=== PATIENT | female | born 1990 | race Caucasian/White ===

== ENCOUNTER 2019-05-14 17:18 | Emergency (ER) | payer OTHER ==
[~2019-05-14] VITALS: Ht 170.2 cm; Wt 117.9 kg
[~2019-05-14 17:18] MED LIST: CIPROFLOXACIN500 M1 PO; NORCO 5-325 TA1 EACH PO; ZANTAC 150MG T150 M1 PO; ZOFRAN ODT4 MG PO
[2019-05-14 17:32] LABS: URINE BILIRUBIN NEGATIVE (Negative); URINE BLOOD TRACE (Negative); URINE CLARITY CLEAR; URINE COLOR YELLOW; URINE GLUCOSE-RANDOM* NEGATIVE (Negative); URINE KETONES NEGATIVE (Negative); URINE LEUKOCYTES NEGATIVE (Negative); URINE NITRITE NEGATIVE (Negative); URINE PROTEIN (DIPSTICK) NEGATIVE (Negative); URINE UROBILINOGEN 0.2 E.U./dl (0.2-1.0)
[2019-05-14 17:39] LABS: BASOPHILS 0.5 % (0.0-2.0); EOSINOPHILS 2.2 % (0.0-3.0); HEMATOCRIT 44.1 % (37.0-47.0); HEMOGLOBIN 14.9 gm/dL (12.0-15.0); LYMPHOCYTES 23.5 % (24.0-44.0); MCHC 33.9 g/dL (28.0-37.0); MCV 91.6 fL (80.0-100.0); MONOCYTES 6.5 % (1.0-8.0); PLATELET COUNT 329 thou/uL (150-400); POLYS 67.3 % (36.0-66.0); RBC 4.82 mil/uL (4.20-5.00); RDW 12.8 % (10.5-14.5); WBC 11.9 thou/uL (4.0-11.0)
[2019-05-14 17:48] LABS: CALCIUM 9.6 mg/dL (8.5-10.1); CREATININE 0.8 mg/dL (0.6-1.0)
[2019-05-14 17:49] LABS: POTASSIUM 4.2 mmol/L (3.5-5.1)
[2019-05-14 17:54] LABS: ALBUMIN 4.1 g/dL (3.4-5.0); TOTAL BILIRUBIN 0.4 mg/dL (<0.1-1.0); TOTAL PROTEIN 7.9 g/dL (6.4-8.2)
[2019-05-14] MEDS ORDERED: TRAMADOL 50 MG50 MG PO (21:10)
[2019-05-14] MEDS ORDERED: BENTYL 20 MG TA20 M1 PO (21:10)
[2019-05-14] MEDS ORDERED: ONDANSETRON HCL4 M2 PO (21:10)
[2019-05-14 21:40] VITALS: BP 122/71
== END 2019-05-14 21:40 | disposition home or self-care (01) ==
LOC: ER 17:18
PROVIDERS: Physician Assistant
DX: R31.9 Hematuria, unspecified (principal); M79.7 Fibromyalgia; F17.210 Nicotine dependence, cigarettes, uncomplicated; Z88.1 Allergy status to other antibiotic agents